=== PATIENT | male | born 1970 | race Caucasian/White ===

== ENCOUNTER 2017-06-07 15:09 | Emergency (ER) | payer OTHER ==
[2017-06-07 15:17] VITALS: BMI 28.3
[2017-06-07] MEDS ORDERED: ASPIRIN 81 MG CHEWABLE TABLETS PO ONE (16:07)
[2017-06-07] MEDS ORDERED: ACETAMINOPHEN 325 MG TABLET (FP) PO ONE (16:07)
--- NOTE | 2017-06-07 16:08 | PDOC ---
History of Present Illness - General History Source: Patient Exam Limitations: No Limitations <Da Obrien - Last Filed: 06/07/17 16:44> <Sheng Franco - Last Filed: 06/07/17 17:04> - General Chief Complaint: Chest Pain Stated Complaint: CHEST PAIN Time Seen by Provider: 06/07/17 15:31 - History of Present Illness Initial Comments: 06/07/17 16:44 The patient is a 47 year old male presenting with his , with a significant past medical history of hypercholesterolemia (no medications), who presents to the emergency department with chest pain for the past 3 hours. He describes his chest pain as localized on the left side of his chest, ranging from mild to moderate, without radiation. He notes that he feels a bump on the left side, which when he touches exacerabtes the pain. He also notes that moving his left upper extremity exacerbates the pain. He reports that he does workout often, usually consisting of running but last time he went to the gym was a week ago. Pt araceli any similar sypmtoms when he is doing excercises. The patient denies shortness of breath, headache and dizziness. Denies fever, chills, nausea, vomit, diarrhea and constipation. Denies dysuria, frequency, urgency and hematuria. No known family history of cardiac disease. Allergies: None Past surgical history: None reported Social history: Social alcohol use. No tobacco or drug use reported (Da Obrien) Past History <Da Obrien - Last Filed: 06/07/17 16:44> - Past Medical History Other medical history: denies - Psycho/Social/Smoking Cessation Hx Anxiety: No Suicidal Ideation: No Smoking History: Never smoked <Sheng Franco - Last Filed: 06/07/17 17:04> - Past Medical History Allergies/Adverse Reactions: Allergies Allergy/AdvReac Type Severity Reaction Status Date / Time No Known Allergies Allergy Verified 06/07/17 15:14 Home Medications: Ambulatory Orders No Home Medications 0 dose .ROUTE UTDICT 09/27/13 Review of Systems - Review of Systems Able to Perform ROS?: Yes <Da Obrien - Last Filed: 06/07/17 16:44> <Sheng Franco - Last Filed: 06/07/17 17:04> - Review of Systems Comments:: 06/07/17 16:45 CONSTITUTIONAL: No reported: Fever, Chills, Diaphoresis, Generalized Weakness, Malaise, Loss of Appetite HEENT: No reported: Rhinorrhea, Nasal Congestion, Throat Pain, Throat Swelling, Difficulty Swallowing, Mouth Swelling, Ear Pain, Eye Pain, Visual Changes CARDIOVASCULAR: Reported: Chest pain No reported: Syncope, Palpitations, Irregular Heart Rate, Lightheadedness, Peripheral Edema RESPIRATORY: No reported: Cough, Shortness of Breath, SOB with Exertion, Orthopnea, Wheezing , Stridor, Hemoptysis GASTROINTESTINAL: No reported: Abdominal pain, Abdominal Distension, Nausea, Vomiting, Diarrhea, Constipation, Melena, Hematochezia GENITOURINARY: No reported: Dysuria, Frequency, Urgency, Hesitancy, Flank Pain, Genital Pain MUSCULOSKELETAL: No reported: Myalgia, Arthralgia, Joint Swelling, Back pain, Neck Pain SKIN: No reported: Rash, Itching, Pallor HEMEATOLOGIC/IMMUNOLOGIC: No reported: Easy Bleeding, Easy Bruising, Lymphadenopathy, Frequent infections ENDOCRINE: No reported: Unexplained Weight Gain, Unexplained Weight Loss, Heat Intolerance , Cold Intolerance NEUROLOGIC: No reported: Headache, Focal Weakness, Paresthesias, Vertigo, Lightheadedness, Unsteady Gait, Seizure, Mental Status Changes, Incontinence PSYCHIATRIC: No reported: Anxiety, Depression (Da Obrien) *Physical Exam <Da Obrien - Last Filed: 06/07/17 16:44> <SalvadorSheng - Last Filed: 06/07/17 17:04> - Vital Signs Last Vital Signs Temp Pulse Resp BP Pulse Ox 99.1 F 83 19 161/90 97 06/07/17 15:14 06/07/17 15:14 06/07/17 15:14 06/07/17 15:14 06/07/17 15:14 - Physical Exam Comments: 06/07/17 16:45 GENERAL: The patient is awake, alert, and fully oriented, Nontoxic - in no acute distress. HEAD: Normocephalic, atraumatic. EYES: extraocular movements intact, sclera anicteric, conjunctiva clear. ENT: Normal voice, Moist mucous membranes. NECK: Normal range of motion, supple LUNGS: Breath sounds equal, clear to auscultation bilaterally. No wheezes, no rhonchi, no rales. HEART: Regular rate and rhythm, without murmur, rub or gallop. ABDOMEN: Soft, nontender, normoactive bowel sounds. No guarding, no rebound.No CVA tenderness MUSCULOSKELETAL: (+) Reproducible left sided muscular tenderness. EXTREMITIES: Normal range of motion, no edema. No clubbing or cyanosis. No cords, erythema, or tenderness. NEUROLOGICAL: No facial assymetry, Normal speech, PSYCH: Normal mood, normal affect. SKIN: Warm, Dry, normal turgor (Da Obrien) Heart Score/ECG Review <Da Obrien - Last Filed: 06/07/17 16:44> <Sheng Franco - Last Filed: 06/07/17 17:04> - ECG Impressions Comment:: 06/07/17 16:03 Twelve-lead EKG was performed and reviewed by me. There is normal sinus rhythm with a normal rate. rate of 69 The axis is normal. incomplete RBBB There is normal R wave progression There are no ST or T wave abnormalities. (Sheng Franco) ED Treatment Course - LABORATORY CBC & Chemistry Diagram: 06/07/17 16:23 06/07/17 16:23 <Da Obrien - Last Filed: 06/07/17 16:44> - LABORATORY CBC & Chemistry Diagram: 06/07/17 16:23 06/07/17 16:23 <Sheng Franco - Last Filed: 06/07/17 17:04> - ADDITIONAL ORDERS Additional order review: Laboratory Results 06/07/17 16:23 Sodium 141 Potassium 4.1 Chloride 110 H Carbon Dioxide 26 Anion Gap 5 L BUN 17 Creatinine 1.0 Creat Clearance w eGFR > 60 Random Glucose 111 H Calcium 8.7 Total Bilirubin 0.3 AST 16 ALT 27 Alkaline Phosphatase 89 Creatine Kinase 169 Troponin I < 0.02 Total Protein 6.9 Albumin 4.0 06/07/17 16:23 RBC 4.86 MCV 89.2 MCHC 34.2 RDW 13.5 MPV 10.0 Neutrophils % 63.1 Lymphocytes % 28.3 Monocytes % 6.3 Eosinophils % 1.7 Basophils % 0.6 - RADIOLOGY Radiology Studies Ordered: Category Date Time Status CHEST X-RAY PORTABLE* [RAD] Stat Radiology 06/07/17 16:07 Taken - Medications Given in the ED: ED Medications Discontinued Medications Generic Name Dose Route Start Last Admin Trade Name Eloisa PRN Reason Stop Dose Admin Acetaminophen 650 mg 06/07/17 16:07 06/07/17 16:20 Tylenol - PO 06/07/17 16:08 650 mg ONCE ONE Administration Aspirin 324 mg 06/07/17 16:07 06/07/17 16:20 Asa - PO 06/07/17 16:08 324 mg ONCE ONE Administration Medical Decision Making <Da Obrien - Last Filed: 06/07/17 16:44> <Sheng Franco - Last Filed: 06/07/17 17:04> - Medical Decision Making 06/07/17 16:04 47y M presents with intermitent L sided chest pain approx 3 hrs prior to presentation. On exam the pt endorses mild pain when he he is moving his arm described as pressure like. On exam pt notes it does reproduce th esypmtoms but it it felt alittle bit worse earlier pt is very active usually and has never had any similar sypmtoms in the past A portion of this note was documented by scribe services under my direction. I have reviewed the details of the note, within reason, and agree with the documentation with the following case summary and management plan written by me 06/07/17 17:03 PERC negative trop neg x 1 will await second troponin at 6pm. (Sheng Franco) *DC/Admit/Observation/Transfer <Da Obrien - Last Filed: 06/07/17 16:44> <Sheng Franco - Last Filed: 06/07/17 17:04> - Attestations Scribe Attestion: 06/07/17 16:46 Documentation prepared by aD Obrien, acting as medical record assistant for Sheng Franco MD (Da Obrien)
[2017-06-07] MEDS ORDERED: ASPIRIN 81 MG CHEWABLE TABLETS ONE (16:13)
[2017-06-07] MEDS ORDERED: ACETAMINOPHEN 325 MG TABLET (FP) ONE (16:13)
[2017-06-07 16:30] LABS: BASOPHIL 0.6 % (0-2.0); EOSINOPHIL 1.7 % (0-4.5); MCH 30.5 pg (25.7-33.7); MCHC 34.2 g/dl (32.0-35.9); MEAN CELL VOLUME 89.2 fl (80-96); NEUTROPHILS 63.1 % (42.8-82.8); PLATELET COUNT 179 K/MM3 (134-434); RDW 13.5 % (11.9-15.9)
[2017-06-07 16:57] LABS: ANION GAP 5 (8-16); BILIRUBIN,TOTAL 0.3 mg/dL (0.2-1.0); CALCIUM 8.7 mg/dL (8.5-10.1); CO2 26 mmol/L (21-32); GLUCOSE,RANDOM 111 mg/dL (74-106); SGOT/AST 16 U/L (15-37); SGPT/ALT 27 U/L (12-78); TOT PROT 6.9 g/dl (6.4-8.2)
[2017-06-07 16:59] LABS: ALK PHOS 89 U/L (45-117); CPK 169 IU/L (39-308); TROPONIN I < 0.02 ng/ml (0.00-0.05)
[2017-06-07 19:15] LABS: CPK 153 IU/L (39-308); TROPONIN I < 0.02 ng/ml (0.00-0.05)
--- NOTE | 2017-06-07 20:02 | PDOC ---
*Physical Exam - Vital Signs Last Vital Signs Temp Pulse Resp BP Pulse Ox 99.1 F 83 19 161/90 97 06/07/17 15:14 06/07/17 15:14 06/07/17 15:14 06/07/17 15:14 06/07/17 15:14 - Physical Exam Comments: 06/07/17 19:58 Patient was endorsed to me by Dr. Franco. Patient is a 47-year-old male with history of hypercholesterolemia (on no meds) who presented with atypical chest discomfort. Initial EKG showed no evidence of acute ischemia. Patient was ruled out for PE by the Perc criteria. Chest x-ray reveals no evidence of cardiomegaly. Serial cardiac enzymes are within normal limit. ACS is highly unlikley. Will discharge as per initial plan with PMD follow-up. ED Treatment Course - LABORATORY CBC & Chemistry Diagram: 06/07/17 16:23 06/07/17 16:23 - ADDITIONAL ORDERS Additional order review: Laboratory Results 06/07/17 06/07/17 18:40 16:23 Sodium 141 Potassium 4.1 Chloride 110 H Carbon Dioxide 26 Anion Gap 5 L BUN 17 Creatinine 1.0 Creat Clearance w eGFR > 60 Random Glucose 111 H Calcium 8.7 Total Bilirubin 0.3 AST 16 ALT 27 Alkaline Phosphatase 89 Creatine Kinase 153 169 Creatine Kinase Index 0.6 0.6 CK-MB (CK-2) 1.014 1.107 Troponin I < 0.02 < 0.02 Total Protein 6.9 Albumin 4.0 06/07/17 16:23 RBC 4.86 MCV 89.2 MCHC 34.2 RDW 13.5 MPV 10.0 Neutrophils % 63.1 Lymphocytes % 28.3 Monocytes % 6.3 Eosinophils % 1.7 Basophils % 0.6 - Medications Given in the ED: ED Medications Discontinued Medications Generic Name Dose Route Start Last Admin Trade Name Freq PRN Reason Stop Dose Admin Acetaminophen 650 mg 06/07/17 16:07 06/07/17 16:20 Tylenol - PO 06/07/17 16:08 650 mg ONCE ONE Administration Aspirin 324 mg 06/07/17 16:07 06/07/17 16:20 Asa - PO 06/07/17 16:08 324 mg ONCE ONE Administration *DC/Admit/Observation/Transfer Diagnosis at time of Disposition: Atypical chest pain - Discharge Dispostion Disposition: HOME Condition at time of disposition: Stable - Referrals Referrals: pmd, three to four days [Other] - Patient Instructions Printed Discharge Instructions: DI for Atypical Chest Pain Print Language: ESTONIAN
[2017-06-07 20:14] VITALS: BP 134/72; PULSE 67; TEMP 98.7
--- NOTE | 2017-06-08 08:15 | EKG ---
Test Reason : Blood Pressure : / mmHG Vent. Rate : 069 BPM Atrial Rate : 069 BPM P-R Int : 160 ms QRS Dur : 094 ms QT Int : 364 ms P-R-T Axes : 044 045 021 degrees QTc Int : 390 ms NORMAL SINUS RHYTHM INCOMPLETE RIGHT BUNDLE BRANCH BLOCK BORDERLINE ECG NO PREVIOUS ECGS AVAILABLE Confirmed by KIKI DHILLON MD ([id number]) on 06/08/2017 8:15:26 AM Referred By: Confirmed By:KIKI DHILLON MD
== END 2017-06-07 20:15 | disposition home or self-care (01) ==
LOC: JER 15:09
DX: R07.89 Other chest pain (principal); E78.00 Pure hypercholesterolemia, unspecified
CPT/HCPCS: 36415; 71010-TC; 80053; 82553; 84484; 85025; 93005; 93010; 99284-25

== ENCOUNTER 2023-11-06 10:11 | Emergency (ER) | payer OTHER ==
[2023-11-06 10:33] VITALS: TEMP 98.2; BMI 31.4
[2023-11-06] MEDS ORDERED: predniSONE 20 MG TABLET (UD) PO ONE (11:35)
[2023-11-06 15:10] VITALS: BP 134/73; PULSE 68; RESP 16
== END 2023-11-06 15:22 | disposition home or self-care (01) ==
LOC: JER 10:11
DX: G51.0 Bell's palsy (principal); R51.9 Headache, unspecified
CPT/HCPCS: 70450-TC; 99284-25